=== PATIENT | male | born 1990 | race Two or more races ===

== ENCOUNTER 2017-01-25 00:01 | Emergency (ER) | payer SELFPAY ==
[~2017-01-25] VITALS: Ht 165.1 cm; Wt 59.0 kg
[2017-01-25] MEDS ORDERED: NKM (00:14)
[2017-01-25] MEDS ORDERED: IBUPROFEN600 MG ORAL (01:07)
--- NOTE | 2017-01-25 01:08 | Emergency Room Report ---
History of Present Illness General Chief Complaint: Head Injury Source: Patient Present Illness HPI Is a 26-year-old male with no significant past medical history. He presents with chief complaint of headache and head trauma. About 2 days ago he was working in the ladder fell on his head. He has some bruising over that area. Since then he said he felt funny. No focal deficit. No nausea no vomiting. Is not himself. No other complaint. Allergies: Coded Allergies: No Known Allergies (Unverified , 01/25/17) Patient History Past Medical History: see triage record, old chart reviewed Past Surgical History: none Pertinent Family History: none Social History: Denies: smoking Immunizations: other Reviewed Nursing Documentation: PMH: Agreed, PSxH: Agreed Nursing Documentation-PMH Past Medical History: No Stated History Review of Systems Eye: Denies: eye pain, blurred vision ENT: Denies: ear pain, nose congestion, throat swelling Respiratory: Denies: cough, shortness of breath Cardiovascular: Denies: chest pain, palpitations Gastrointestinal: Denies: abdominal pain, diarrhea, nausea, vomiting Musculoskeletal: Denies: back pain, joint pain Skin: Denies: rash Neurological: Denies: headache, numbness Endocrine: Denies: increased thirst, increased urine Hematologic/Lymphatic: Denies: easy bruising All Other Systems: negative except mentioned in HPI Physical Exam Vital Signs Date Time Temp Pulse Resp B/P (MAP) Pulse Ox O2 Delivery O2 Flow Rate FiO2 01/25/17 00:09 97.5 77 18 113/73 99 Room Air vitals normal Sp02 EP Interpretation: reviewed, normal General Appearance: well appearing, no apparent distress, alert Head: normocephalic, other - Abrasion to to the top of his head. No ation. Eyes: bilateral eye PERRL, bilateral eye EOMI ENT: hearing grossly normal, normal pharynx Neck: full range of motion, supple, no meningismus Respiratory: chest non-tender, lungs clear, normal breath sounds Cardiovascular #1: regular rate, rhythm, no murmur Gastrointestinal: normal bowel sounds, non tender, no mass, no organomegaly, no bruit, non-distended Musculoskeletal: back normal, gait/station normal, normal range of motion Psychiatric: mood/affect normal Skin: warm/dry Medical Decision Making Diagnostic Impression: Primary Impression: Acute head injury Qualified Codes: S09.90XA - Unspecified injury of head, initial encounter ER Course patient with head injury. No fracture or bleed. We'll discharge home CT/MRI/US Diagnostic Results CT/MRI/US Diagnostic Results : Imaging Test Ordered: CT head Impression read by radiologist. Negative. Last Vital Signs Date Time Temp Pulse Resp B/P (MAP) Pulse Ox O2 Delivery O2 Flow Rate FiO2 01/25/17 00:09 97.5 77 18 113/73 99 Room Air Status: improved Disposition: HOME, SELF-CARE Condition: Stable Scripts Ibuprofen* (MOTRIN*) 600 Mg Tablet 600 MG ORAL Q8H Y for For Pain, #30 TAB 0 Refills Prov: JE GUAN M.D. 01/25/17 Patient Instructions: HEAD INJURY, No Wake-Up (Adult) Additional Instructions: Followup with your Dr. in 7 days. Return if worse. EJ GUAN M.D. Jan 25, 2017 01:08
[2017-01-25 01:18] VITALS: BP 113/73
--- NOTE | 2017-01-25 08:50 | Diagnostic Imaging Report ---
Indications: Pain, status post trauma Technique: Spiral acquisitions obtained through the brain. Angled axial and coronal 5 x 5 mm slices were reconstructed. Total dose length product 1340 mGycm. CTDI vol(s) 70 mGy. Dose reduction achieved using automated exposure control Comparison: None Findings: No acute hemorrhage or edema. No mass effect or midline shift. Normal german-white differentiation. Intact calvarium. There is minimal mucosal disease in the right sphenoid sinus. Impression: Minimal sinus disease. Negative. No acute intracranial bleed or mass effect This agrees with the preliminary interpretation provided overnight by [facility]. The CT scanner at [facility] is accredited by the [employer] and the scans are performed using protocols designed to limit radiation exposure to as low as reasonably achievable to attain images of sufficient resolution adequate for diagnostic evaluation.
== END 2017-01-25 01:18 | disposition home or self-care (01) ==
LOC: EMR 00:25
DX: S09.90XA Unspecified injury of head, initial encounter (principal); W11.XXXA Fall on and from ladder, initial encounter; Y93.9 Activity, unspecified; Y99.9 Unspecified external cause status
CPT/HCPCS: 70450; 99284